=== PATIENT | male | born 1985 | race Caucasian/White ===

== ENCOUNTER 2018-05-15 17:31 | Inpatient (IN) | payer MEDICARE, MEDICAID ==
--- NOTE | 2018-05-15 17:36 | ED Physician Chart ---
ED Chief Complaint/HPI - Patient Information Date Seen:: 05/15/18 Time Seen:: 17:25 Chief Complaint:: Palpitations History of Present Illness:: onset x 2 days of palpitations, chest pain, S/T, cough, H/As, congestion, and fever; pt denies trauma, E/As, neck pain, SOB, Abd. Pain, A/N/V/D/C, chills, or urinary s/s Historian:: Patient, Family Member Review:: Nurse's Note Reviewed ED Review of Systems - Review of Systems General/Constitutional: Fever, No chills, No weight loss, No weakness, No diaphoresis, No edema, No loss of appetite Skin: No skin lesions, No rash, No bruising Head: Headache, No light-headedness Eyes: No loss of vision, No pain, No diplopia ENT: No earache, Nasal drainage, Sore throat, No tinnitus Neck: No neck pain, No swelling, No thyromegaly, No stiffness, No mass noted Cardio Vascular: Chest pain, Palpitations, No PND, No orthopnea, No edema Pulmonary: No SOB, No cough, No sputum, No wheezing GI: No nausea, No vomiting, No diarrhea, No pain, No melena, No hematochezia, No constipation, No hematemesis G/U: No dysuria, No frequency, No hematuria, No nacturia Musculoskeletal: No bone or joint pain, No back pain, No muscle pain Endocrine: No polyuria, No polydipsia Psychiatric: No prior psych history, No depression, No anxiety, No suicidal ideation, No homicidal ideation, No auditory hallucination, No visual hallucination Hematopoietic: No bruising, No lymphadenopathy Allergic/Immuno: No urticaria, No angioedema Neurological: No syncope, No focal symptoms, No weakness, No paresthesia, Headache, No seizure, No dizziness, No confusion, No vertigo ED Past Medical History - Past Medical History Obtainable: Yes Past Medical History: No significant medical hx Family History: HTN Social History: Non Smoker, No Alcohol, No Drug Use, Single Surgical History: None Psychiatricy History: None Medication: Reviewed Family Medical History - Family Member Mother History Unknown: Yes ED Physical Exam - Physical Examination General/Constitutional: Awake, Well-developed, well-nourished, Alert, No distress, GCS 15, Non-toxic appearing, Ambulatory Head: Atraumatic Eyes: Lids, conjuctiva normal, PERRL, EOMI Skin: Nl inspection, No rash, No skin lesions, No ecchymosis, Well hydrated, No lymphadenopathy ENMT: External ears, nose nl, TM canals nl, Nasal exam nl, Lips, teeth, gums nl , Tonsils nl Other ENMT comments:: Pharynx: Injected; + Nasal Congestion Neck: Nontender, Full ROM w/o pain, No JVD, No nuchal rigidity, No bruit, No mass, No stridor Respiratory: Nl effort/Exclusion, Clear to Auscultation, No Wheeze/Rhonchi/Rales Cardio Vascular: RRR, No murmur, gallop, rubs, NL S1 S2, Carotid/Femoral/Distal pulses equal bilaterally GI: No tenderness/rebounding/guarding, No organomegaly, No hernia, Normal BS's, Nondistended, No mass/bruits, No McBurney tenderness, Rectum exam nl Other GI comments:: no pulsatile masses : No CVA tenderness Extremities: No tenderness or effusion, Full ROM, normal strength in all extremities, No edema, Normal digits & nails Neuro/Psych: Alert/oriented, DTR's symmetric, Normal sensory exam, Normal motor strength, Judgement/insight normal, Mood normal, Normal gait, No focal deficits Other Neuro/Psych comments:: no focal signs Misc: Normal back, No paraspinal tenderness ED Labs/Radiology/EKG Results - Lab Results Comments:: Reviewed - Radiology Results Comments:: CXR: NAD - EKG Interpretations EKG Time:: 17:36 Rate & Rhythm: 133; ST Comments:: LVH; non-specific st-t changes ED Septic Shock - . Is Septic Shock (SBP<90, OR Lactate>4 mmol\L) present?: No ED Reassessment (Disposition) - Reassessment Reassessment Condition:: Improved - Diagnosis Diagnosis:: Dx: Palpitations; Cardiac Arrythmias; Tachycardia; Chest Pain; Angina Pectoris; Pharyngitis; Headaches; Hypokalemia; Leukocytosis; Fever; Bronchitis; URI - Aftercare/Follow up Instructions Aftercare/Follow-Up Instructions:: Counseled pt regarding lab results/diagnosis & need follow up, Counseled pt & family regarding lab results/diagnosis & need follow up - Patient Disposition Discharge/Transfer:: Acute Care w/in this hosp Accepting Physician:: Dr. Dickens Time Called:: 1929 Time Responded:: 19:30 Admitted to:: Telemetry Spoke to:: Dr. Dickens Admitting Medical Physician:: Dr. Dickens Condition at Disposition:: Stable, Improved
[2018-05-15] MEDS ORDERED: Sodium Chloride 0.9% 1,000 ML IV ONE (17:41)
[2018-05-15] MEDS ORDERED: Aspirin 81mg Chewable Tab PO STA (18:04)
[2018-05-15] MEDS ORDERED: Aspirin 81mg Chewable Tab ONE (18:06)
[2018-05-15 18:19] LABS: HEMATOCRIT 43.2 % (41.0-60); HEMOGLOBIN 14.4 gm/dL (12-16); MEAN CELL VOLUME 87.8 fl (80-99); MEAN CORPUSCULAR HEMOGLOBIN 29.3 pg (26.0-30.0); MEAN CORPUSCULAR HGB CONC 33.4 pg (28.0-36.0); MEAN PLATELET VOLUME 8.6 fl; PLATELET COUNT 343 Th/cmm (150-400); RED BLOOD COUNT 4.92 Mil/cmm (4.30-5.70)
[2018-05-15] MEDS ORDERED: cefTRIAXone 1 GM in Sodium Chloride 0.9% 50 ML IV ONE (18:21)
[2018-05-15 18:24] LABS: PROTHROMBIN TIME (TEST) 10.4 SECONDS (9.5-11.5)
[2018-05-15 18:27] LABS: WHITE BLOOD COUNT 19.4 Th/cmm (4.8-10.8)
[2018-05-15 18:30] LABS: ALB/GLOB RATIO 1.7 (1.0-1.8); ALBUMIN 4.7 gm/dL (4.2-5.5); ALKALINE PHOSPHATASE 125 U/L (34-104); ANION GAP 14.7 (7.0-16.0); BILIRUBIN,TOTAL 0.5 mg/dL (0.3-1.0); BUN - UREA NITROGEN 8 mg/dL (7-25); CALCIUM SERUM 9.6 mg/dL (8.6-10.3); CARBON DIOXIDE 24.6 mEq/L (21.0-31.0); CHLORIDE 102 mEq/L (98-107); CHOLESTEROL 118 mg/dL (<200); CREATININE - SERUM 1.2 mg/dL (0.7-1.3); CREATININE KINASE 147 U/L (30-223); GFR AFRICAN-AMERICAN > 60.0 ml/min (>90); GFR NON AFRICAN-AMERICAN > 60.0 ml/min; GLUCOSE 114 mg/dL (70-105); HDL -HIGH DENSITY LIPOPROTEIN 61 mg/dL (23-92); POTASSIUM SERUM 3.3 mEq/L (3.5-5.1); SGOT 20 U/L (13-39); SGPT/ALT 40 U/L (7-52); SODIUM SERUM 138 mEq/L (136-145); TOTAL PROTEIN,SERUM 7.5 gm/dL (6.0-8.3); TRIGLYCERIDES 50 mg/dL (<150)
[2018-05-15 18:36] LABS: AMYLASE SERUM 41 U/L (29-103); LIPASE 16 U/L (11-82)
[2018-05-15 18:52] LABS: BAND NEUTROPHILE 9 % (0-10); EOSINOPHIL 1 % (0-5); LYMPHOCYTE 13 % (20-50); MONOCYTE 4 % (2-10); NEUTROPHILS 73 % (40-80)
[2018-05-15 19:03] LABS: DDIMER QUANT < 100 ng/mL (100-400)
[2018-05-15] MEDS ORDERED: Potassium Chloride 20 mEq ER Tab PO ONE ×2 (19:16→19:55)
[2018-05-15 19:28] LABS: URINE SOURCE CLEAN C
[2018-05-15 19:29] LABS: URINE BILIRUBIN NEGATIVE (NEGATIVE); URINE BLOOD TRACE (NEGATIVE); URINE GLUCOSE (UA) NEGATIVE (NEGATIVE); URINE KETONE NEGATIVE (NEGATIVE); URINE LEUKOCYTE ESTERASE NEGATIVE (NEGATIVE); URINE MICROSCOPIC INDICATED? YES; URINE NITRATE NEGATIVE (NEGATIVE); URINE PH 7.5 (4.6 - 8.0); URINE PROTEIN NEGATIVE (NEGATIVE); URINE UROBILINOGEN 0.2 E.U./dL (0.2 - 1.0)
[2018-05-15 19:36] LABS: URINE CLARITY CLEAR (CLEAR); URINE COLOR YELLOW
[2018-05-15 19:42] LABS: URINE BACTERIA FEW /hpf (NONE SEEN); URINE EPITHELIAL CELLS FEW /lpf (FEW); URINE WBC 0-2 /hpf (0-5)
[2018-05-15 20:12] LABS: AMPHETAMINE URINE NEGATIVE (NEGATIVE); BARBITURATES URINE NEGATIVE (NEGATIVE); BENZODIAZEPINES QUAL URINE NEGATIVE (NEGATIVE); CANNABINOID THC NEGATIVE (NEGATIVE); COCAINE METABOLITE QUAL URINE NEGATIVE (NEGATIVE); METHADONE URINE NEGATIVE (NEGATIVE); METHAMPHETAMINES QUAL URINE NEGATIVE (NEGATIVE); OPIATES (MORPHINE) QUAL. URINE NEGATIVE (NEGATIVE); PHENCYCLIDINE (PCP) URINE NEGATIVE (NEGATIVE); TRICYCLICS (TCA) QUAL. URINE NEGATIVE (NEGATIVE)
[2018-05-15] MEDS ORDERED: Piperacillin Sodium/Tazobact 3.375 gm Vial IV ONE (21:58)
[2018-05-15] MEDS: Sodium Chloride 0.9% 1,000 ML IV SCH (22:18)
[2018-05-16 02:51] VITALS: BP 139/93
[2018-05-16] MEDS ORDERED: Piperacillin Sodium/Tazobact 3.375 gm Vial IV ONE (04:11)
[2018-05-16 04:44] LABS: % BASOPHILS 2.3 % (0.0-2.0); % EOSINOPHILS 0.9 % (0.0-5.0); % LYMPHOCYTES 15.4 % (20.0-50.0); % MONOCYTES 5.9 % (2.0-10.0); % NEUTROPHILS 75.5 % (40.0-80.0); BASOPHILE ABSOLUTE 0.3 Th/cumm (0-0.2); EOSINOPHILE ABSOLUTE 0.1 Th/cmm (0.1-0.4); HEMATOCRIT 41.4 % (41.0-60); LYMPHOCYTE ABSOLUTE 2.2 Th/cmm (1.5-3.0); MEAN CELL VOLUME 87.9 fl (80-99); MEAN CORPUSCULAR HEMOGLOBIN 29.7 pg (26.0-30.0); MEAN CORPUSCULAR HGB CONC 33.8 pg (28.0-36.0); MEAN PLATELET VOLUME 8.1 fl; MONOCYTE ABSOLUTE 0.8 Th/cmm (0.3-1.0); NEUTROPHILE ABSOLUTE 10.7 Th/cmm (1.8-8.0); PLATELET COUNT 287 Th/cmm (150-400); RED CELL DISTRIBUTION WIDTH 13.3 % (11.5-20.0)
[2018-05-16 05:05] LABS: WHITE BLOOD COUNT 14.1 Th/cmm (4.8-10.8)
[2018-05-16 05:28] LABS: ALB/GLOB RATIO 1.7 (1.0-1.8); ALKALINE PHOSPHATASE 101 U/L (34-104); ANION GAP 14.2 (7.0-16.0); BILIRUBIN,TOTAL 0.7 mg/dL (0.3-1.0); BUN - UREA NITROGEN 6 mg/dL (7-25); CALCIUM SERUM 8.8 mg/dL (8.6-10.3); CARBON DIOXIDE 25.7 mEq/L (21.0-31.0); CHLORIDE 106 mEq/L (98-107); CREATININE - SERUM 0.6 mg/dL (0.7-1.3); GFR AFRICAN-AMERICAN > 60.0 ml/min (>90); GFR NON AFRICAN-AMERICAN > 60.0 ml/min; GLUCOSE 103 mg/dL (70-105); POTASSIUM SERUM 3.9 mEq/L (3.5-5.1); SGOT 18 U/L (13-39); SGPT/ALT 33 U/L (7-52); SODIUM SERUM 142 mEq/L (136-145); TOTAL PROTEIN,SERUM 6.4 gm/dL (6.0-8.3)
[2018-05-16] MEDS: Sodium Chloride 0.9% 1,000 ML IV SCH ×2 (08:00→17:04)
--- NOTE | 2018-05-16 09:08 | Diagnostic Imaging Report ---
Portable chest x-ray History: Pain Allowing for portable technique the heart size is normal. No focal pulmonary parenchymal processes. No hilar or mediastinal abnormalities. Impression: No acute abnormalities.
--- NOTE | 2018-05-16 09:12 | Diagnostic Imaging Report ---
CT scan of the brain without contrast History: Headache Total DLP equals 670 CTDI equals 35.8 Axial sections were obtained from the base of the skull to the vertex. There is a normal ventricular system size. No focal parenchymal lesions are seen. No evidence of any mass effect or shift of midline structures. No extra-axial masses or abnormal fluid collections. Mucosal thickening noted within the ethmoid sinuses and suggestion of a small fluid level in the right maxillary sinus. Subcentimeter intraluminal densities noted within the left maxillary sinus. Small mucosal polyps or cysts cannot be excluded. Impression: 1. No acute intracerebral abnormalities 2. Mucosal thickening within the ethmoid and right maxillary sinuses. Subcentimeter intraluminal densities within the left maxillary sinus. Small mucosal polyps or cysts cannot be excluded.
--- NOTE | 2018-05-16 12:29 | History and Physical ---
History of Present Illness - HPI Chief Complaint: Chest pain, palpitations HPI: Patient refer that 2 days ago started with Chest pain, palpitations, chest congestion, odynophagia, and fever. Durinr ER evaluatuion was found WBC above, 20.000 thachicardy and fever. 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 Hx GI: Report: No Pertinent Hx Psych: Report: No Pertinent Hx Musculoskeletal: Report: No Pertinent Hx Rheumatologic: Report: No pertinent Hx Infectious Disease: Report: No Pertinent Hx Renal/: Report: No Pertinent Hx Endocrine: Report: No Pertinent Hx Dermatology: Report: No Pertinent Hx - Past Surgical History Past Surgical History: No pertinent Hx Family Medical History - Family Member Mother History Unknown: Yes Social History Smoke: No Alcohol: None Drugs: None Lives: Homeless Domestic Violence: Negative - Medications Home Medications: Home Medication Medication Instructions Recorded Type Dayquil 1 tsp PO X1 05/15/18 History - Allergies Allergies/Adverse Reactions: Allergies Allergy/AdvReac Type Severity Reaction Status Date / Time No Known Allergies Allergy Verified 05/15/18 18:01 Review of Systems - Review of Systems Constitutional: Report: No Significant Eyes: Report: No Significant ENT: Report: No Significant Respiratory: Report: No Significant Cardiovascular: Report: Chest Pain, Palpitations Gastrointestinal: Report: No Significant Genitourinary: Report: No Significant Musculoskeletal: Report: No Significant Skin: Report: No Significant Neurological: Report: Weakness Physical Exam - Physical Exam HEENT: Report: Pharyngeal Erythema and Exudates Noted Neck: Report: Within normal limits Cardiovascular Systems: Report: Tachycardia Respiratory: Report: Breath Sounds are within normal limits Abdomen: Report: Non-tender to palpation Back: Report: Inspection of back is within normal limits. Extremities: Report: Non-tender to palpation. Skin: Report: Color of skin is within normal limits Neuro/Psych: Report: Mood affect is within normal limits - Lab Results All Lab Results last 24 hours: Laboratory Results - last 24 hr 05/15/18 05/15/18 05/15/18 17:50 17:50 17:50 WBC 19.4 H RBC 4.92 Hgb 14.4 Hct 43.2 MCV 87.8 MCH 29.3 MCHC Differential 33.4 RDW 13.0 Plt Count 343 MPV 8.6 Add Manual Diff YES Neutrophils % Band Neutrophils % 9 Lymphocytes % Monocytes % Eosinophils % Basophils % Neutrophils (Manual) 73 Lymphocytes 13 L Monocytes 4 Eosinophils 1 PT 10.4 INR 1.00 D-Dimer < 100 L Sodium 138 Potassium 3.3 L Chloride 102 Carbon Dioxide 24.6 Anion Gap 14.7 BUN 8 Creatinine 1.2 Est GFR ( Amer) > 60.0 Est GFR (Non-Af Amer) > 60.0 BUN/Creatinine Ratio 6.7 Glucose 114 H Whole Bld Lactic Acid Calcium 9.6 Total Bilirubin 0.5 AST 20 ALT 40 Alkaline Phosphatase 125 H Creatine Kinase 147 Troponin I B-Natriuretic Peptide Total Protein 7.5 Albumin 4.7 Globulin 2.8 Albumin/Globulin Ratio 1.7 Triglycerides 50 Cholesterol 118 LDL Cholesterol Direct 49 L HDL Cholesterol 61 Amylase Lipase Urine Source Urine Color Urine Clarity Urine pH Ur Specific [place] Urine Protein Urine Glucose (UA) Urine Ketones Urine Blood Urine Nitrate Urine Bilirubin Urine Urobilinogen Ur Leukocyte Esterase Urine RBC Urine WBC Ur Epithelial Cells Urine Bacteria Urine Opiates Screen Urine Methadone Screen Ur Barbiturates Screen Ur Tricyclics Screen Ur Phencyclidine Scrn Amphetamines Screen U Methamphetamines Scrn U Benzodiazepines Scrn U Cocaine Metab Screen U Cannabinoids Screen 05/15/18 05/15/18 05/15/18 17:50 17:50 17:50 WBC RBC Hgb Hct MCV MCH MCHC Differential RDW Plt Count MPV Add Manual Diff Neutrophils % Band Neutrophils % Lymphocytes % Monocytes % Eosinophils % Basophils % Neutrophils (Manual) Lymphocytes Monocytes Eosinophils PT INR D-Dimer Sodium Potassium Chloride Carbon Dioxide Anion Gap BUN Creatinine Est GFR ( Amer) Est GFR (Non-Af Amer) BUN/Creatinine Ratio Glucose Whole Bld Lactic Acid Calcium Total Bilirubin AST ALT Alkaline Phosphatase Creatine Kinase Troponin I < 0.01 L B-Natriuretic Peptide 6.0 Total Protein Albumin Globulin Albumin/Globulin Ratio Triglycerides Cholesterol LDL Cholesterol Direct HDL Cholesterol Amylase 41 Lipase 16 Urine Source Urine Color Urine Clarity Urine pH Ur Specific [place] Urine Protein Urine Glucose (UA) Urine Ketones Urine Blood Urine Nitrate Urine Bilirubin Urine Urobilinogen Ur Leukocyte Esterase Urine RBC Urine WBC Ur Epithelial Cells Urine Bacteria Urine Opiates Screen Urine Methadone Screen Ur Barbiturates Screen Ur Tricyclics Screen Ur Phencyclidine Scrn Amphetamines Screen U Methamphetamines Scrn U Benzodiazepines Scrn U Cocaine Metab Screen U Cannabinoids Screen 05/15/18 05/15/18 05/15/18 18:30 19:26 19:26 WBC RBC Hgb Hct MCV MCH MCHC Differential RDW Plt Count MPV Add Manual Diff Neutrophils % Band Neutrophils % Lymphocytes % Monocytes % Eosinophils % Basophils % Neutrophils (Manual) Lymphocytes Monocytes Eosinophils PT INR D-Dimer Sodium Potassium Chloride Carbon Dioxide Anion Gap BUN Creatinine Est GFR ( Amer) Est GFR (Non-Af Amer) BUN/Creatinine Ratio Glucose Whole Bld Lactic Acid 1.02 Calcium Total Bilirubin AST ALT Alkaline Phosphatase Creatine Kinase Troponin I B-Natriuretic Peptide Total Protein Albumin Globulin Albumin/Globulin Ratio Triglycerides Cholesterol LDL Cholesterol Direct HDL Cholesterol Amylase Lipase Urine Source CLEAN C Urine Color YELLOW Urine Clarity CLEAR Urine pH 7.5 Ur Specific [place] <= 1.005 Urine Protein NEGATIVE Urine Glucose (UA) NEGATIVE Urine Ketones NEGATIVE Urine Blood TRACE Urine Nitrate NEGATIVE Urine Bilirubin NEGATIVE Urine Urobilinogen 0.2 Ur Leukocyte Esterase NEGATIVE Urine RBC 2-5 H Urine WBC 0-2 Ur Epithelial Cells FEW Urine Bacteria FEW Urine Opiates Screen NEGATIVE Urine Methadone Screen NEGATIVE Ur Barbiturates Screen NEGATIVE Ur Tricyclics Screen NEGATIVE Ur Phencyclidine Scrn NEGATIVE Amphetamines Screen NEGATIVE U Methamphetamines Scrn NEGATIVE U Benzodiazepines Scrn NEGATIVE U Cocaine Metab Screen NEGATIVE U Cannabinoids Screen NEGATIVE 05/16/18 05/16/18 04:10 04:10 WBC 14.1 H D RBC 4.70 Hgb 14.0 Hct 41.4 MCV 87.9 MCH 29.7 MCHC Differential 33.8 RDW 13.3 Plt Count 287 MPV 8.1 Add Manual Diff Neutrophils % 75.5 Band Neutrophils % Lymphocytes % 15.4 L Monocytes % 5.9 Eosinophils % 0.9 Basophils % 2.3 H Neutrophils (Manual) Lymphocytes Monocytes Eosinophils PT INR D-Dimer Sodium 142 Potassium 3.9 Chloride 106 Carbon Dioxide 25.7 Anion Gap 14.2 BUN 6 L Creatinine 0.6 L Est GFR ( Amer) > 60.0 Est GFR (Non-Af Amer) > 60.0 BUN/Creatinine Ratio 10.0 Glucose 103 Whole Bld Lactic Acid Calcium 8.8 Total Bilirubin 0.7 AST 18 ALT 33 Alkaline Phosphatase 101 Creatine Kinase Troponin I B-Natriuretic Peptide Total Protein 6.4 Albumin 4.0 L Globulin 2.4 Albumin/Globulin Ratio 1.7 Triglycerides Cholesterol LDL Cholesterol Direct HDL Cholesterol Amylase Lipase Urine Source Urine Color Urine Clarity Urine pH Ur Specific [place] Urine Protein Urine Glucose (UA) Urine Ketones Urine Blood Urine Nitrate Urine Bilirubin Urine Urobilinogen Ur Leukocyte Esterase Urine RBC Urine WBC Ur Epithelial Cells Urine Bacteria Urine Opiates Screen Urine Methadone Screen Ur Barbiturates Screen Ur Tricyclics Screen Ur Phencyclidine Scrn Amphetamines Screen U Methamphetamines Scrn U Benzodiazepines Scrn U Cocaine Metab Screen U Cannabinoids Screen - Assessment Assessment: Current Active Problems Problem Status Onset HEART PALPATATIONS WITH H/A Acute Patient is awake, alert, calm in no acute distress. Dx: Sepsis, Epper respiratory infection, Tachycardi. - Plan Plan: Patient in IV AB, IV NS, Pain control, Regular diet. Consult with Cardio requested. Will continue to monitor.
[2018-05-17] MEDS: Sodium Chloride 0.9% 1,000 ML IV SCH ×2 (03:04→08:43)
[2018-05-17 04:49] LABS: ALB/GLOB RATIO 1.5 (1.0-1.8); ALBUMIN 4.3 gm/dL (4.2-5.5); ALKALINE PHOSPHATASE 104 U/L (34-104); ANION GAP 13.8 (7.0-16.0); BILIRUBIN,TOTAL 0.4 mg/dL (0.3-1.0); BUN - UREA NITROGEN 7 mg/dL (7-25); CALCIUM SERUM 9.3 mg/dL (8.6-10.3); CARBON DIOXIDE 26.2 mEq/L (21.0-31.0); CHLORIDE 103 mEq/L (98-107); CREATININE - SERUM 0.7 mg/dL (0.7-1.3); GFR AFRICAN-AMERICAN > 60.0 ml/min (>90); GFR NON AFRICAN-AMERICAN > 60.0 ml/min; GLUCOSE 104 mg/dL (70-105); SGOT 20 U/L (13-39); SGPT/ALT 34 U/L (7-52); SODIUM SERUM 139 mEq/L (136-145); TOTAL PROTEIN,SERUM 7.1 gm/dL (6.0-8.3)
[2018-05-17 06:20] LABS: % LYMPHOCYTES 11.9 % (20.0-50.0); % MONOCYTES 5.1 % (2.0-10.0); EOSINOPHILE ABSOLUTE 0.2 Th/cmm (0.1-0.4); HEMATOCRIT 43.4 % (41.0-60); HEMOGLOBIN 14.6 gm/dL (12-16); LYMPHOCYTE ABSOLUTE 1.9 Th/cmm (1.5-3.0); MEAN CORPUSCULAR HGB CONC 33.7 pg (28.0-36.0); MEAN PLATELET VOLUME 8.2 fl; MONOCYTE ABSOLUTE 0.8 Th/cmm (0.3-1.0); NEUTROPHILE ABSOLUTE 13.3 Th/cmm (1.8-8.0); PLATELET COUNT 299 Th/cmm (150-400); RED BLOOD COUNT 4.87 Mil/cmm (4.30-5.70); RED CELL DISTRIBUTION WIDTH 13.4 % (11.5-20.0)
[2018-05-17 06:23] LABS: WHITE BLOOD COUNT 16.2 Th/cmm (4.8-10.8)
[2018-05-17] MEDS: Vancomycin HCl 1.5 GM in Sodium Chloride 0.9% 500 ML IV SCH ×2 (10:22→21:55)
--- NOTE | 2018-05-17 12:16 | General Progress Note ---
Subjective - Review of Systems Service Date: 05/17/18 Subjective: I am better Objective - Results Result Diagrams: 05/17/18 04:07 05/17/18 04:07 Recent Labs: Laboratory Last Values WBC 16.2 Th/cmm (4.8-10.8) H 05/17/18 04:07 RBC 4.87 Mil/cmm (4.30-5.70) 05/17/18 04:07 Hgb 14.6 gm/dL (12-16) 05/17/18 04:07 Hct 43.4 % (41.0-60) 05/17/18 04:07 MCV 89.0 fl (80-99) 05/17/18 04:07 MCH 30.0 pg (26.0-30.0) 05/17/18 04:07 MCHC Differential 33.7 pg (28.0-36.0) 05/17/18 04:07 RDW 13.4 % (11.5-20.0) 05/17/18 04:07 Plt Count 299 Th/cmm (150-400) 05/17/18 04:07 MPV 8.2 fl 05/17/18 04:07 Add Manual Diff YES 05/15/18 17:50 Neutrophils % 82.0 % (40.0-80.0) H 05/17/18 04:07 Band Neutrophils % 9 % (0-10) 05/15/18 17:50 Lymphocytes % 11.9 % (20.0-50.0) L 05/17/18 04:07 Monocytes % 5.1 % (2.0-10.0) 05/17/18 04:07 Eosinophils % 1.0 % (0.0-5.0) 05/17/18 04:07 Basophils % 0.0 % (0.0-2.0) 05/17/18 04:07 Neutrophils (Manual) 73 % (40-80) 05/15/18 17:50 Lymphocytes 13 % (20-50) L 05/15/18 17:50 Monocytes 4 % (2-10) 05/15/18 17:50 Eosinophils 1 % (0-5) 05/15/18 17:50 PT 10.4 SECONDS (9.5-11.5) 05/15/18 17:50 INR 1.00 (0.5-1.4) 05/15/18 17:50 D-Dimer < 100 ng/mL (100-400) L 05/15/18 17:50 Sodium 139 mEq/L (136-145) 05/17/18 04:07 Potassium 4.0 mEq/L (3.5-5.1) 05/17/18 04:07 Chloride 103 mEq/L (98-107) 05/17/18 04:07 Carbon Dioxide 26.2 mEq/L (21.0-31.0) 05/17/18 04:07 Anion Gap 13.8 (7.0-16.0) 05/17/18 04:07 BUN 7 mg/dL (7-25) 05/17/18 04:07 Creatinine 0.7 mg/dL (0.7-1.3) 05/17/18 04:07 Est GFR ( Amer) > 60.0 ml/min (>90) 05/17/18 04:07 Est GFR (Non-Af Amer) > 60.0 ml/min 05/17/18 04:07 BUN/Creatinine Ratio 10.0 05/17/18 04:07 Glucose 104 mg/dL (70-105) 05/17/18 04:07 Whole Bld Lactic Acid 1.02 mmol/L (0.60-1.99) 05/15/18 18:30 Calcium 9.3 mg/dL (8.6-10.3) 05/17/18 04:07 Total Bilirubin 0.4 mg/dL (0.3-1.0) 05/17/18 04:07 AST 20 U/L (13-39) 05/17/18 04:07 ALT 34 U/L (7-52) 05/17/18 04:07 Alkaline Phosphatase 104 U/L (34-104) 05/17/18 04:07 Creatine Kinase 147 U/L (30-223) 05/15/18 17:50 Troponin I < 0.01 ng/mL (0.01-0.05) L 05/15/18 17:50 B-Natriuretic Peptide 6.0 pg/mL (5.0-100.0) 05/15/18 17:50 Total Protein 7.1 gm/dL (6.0-8.3) 05/17/18 04:07 Albumin 4.3 gm/dL (4.2-5.5) 05/17/18 04:07 Globulin 2.8 gm/dL 05/17/18 04:07 Albumin/Globulin Ratio 1.5 (1.0-1.8) 05/17/18 04:07 Triglycerides 50 mg/dL (<150) 05/15/18 17:50 Cholesterol 118 mg/dL (<200) 05/15/18 17:50 LDL Cholesterol Direct 49 mg/dL (75-193) L 05/15/18 17:50 HDL Cholesterol 61 mg/dL (23-92) 05/15/18 17:50 Amylase 41 U/L (29-103) 05/15/18 17:50 Lipase 16 U/L (11-82) 05/15/18 17:50 Urine Source CLEAN C 05/15/18 19:26 Urine Color YELLOW 05/15/18 19:26 Urine Clarity CLEAR (CLEAR) 05/15/18 19:26 Urine pH 7.5 (4.6 - 8.0) 05/15/18 19:26 Ur Specific [place] <= 1.005 (1.005-1.030) 05/15/18 19:26 Urine Protein NEGATIVE mg/dL (NEGATIVE) 05/15/18 19:26 Urine Glucose (UA) NEGATIVE mg/dL (NEGATIVE) 05/15/18 19:26 Urine Ketones NEGATIVE mg/dL (NEGATIVE) 05/15/18 19:26 Urine Blood TRACE (NEGATIVE) 05/15/18 19:26 Urine Nitrate NEGATIVE (NEGATIVE) 05/15/18 19:26 Urine Bilirubin NEGATIVE (NEGATIVE) 05/15/18 19:26 Urine Urobilinogen 0.2 E.U./dL (0.2 - 1.0) 05/15/18 19:26 Ur Leukocyte Esterase NEGATIVE (NEGATIVE) 05/15/18 19:26 Urine RBC 2-5 /hpf (0-5) H 05/15/18 19:26 Urine WBC 0-2 /hpf (0-5) 05/15/18 19:26 Ur Epithelial Cells FEW /lpf (FEW) 05/15/18 19:26 Urine Bacteria FEW /hpf (NONE SEEN) 05/15/18 19:26 Urine Opiates Screen NEGATIVE (NEGATIVE) 05/15/18 19:26 Urine Methadone Screen NEGATIVE (NEGATIVE) 05/15/18 19:26 Ur Barbiturates Screen NEGATIVE (NEGATIVE) 05/15/18 19:26 Ur Tricyclics Screen NEGATIVE (NEGATIVE) 05/15/18 19:26 Ur Phencyclidine Scrn NEGATIVE (NEGATIVE) 05/15/18 19:26 Amphetamines Screen NEGATIVE (NEGATIVE) 05/15/18 19:26 U Methamphetamines Scrn NEGATIVE (NEGATIVE) 05/15/18 19:26 U Benzodiazepines Scrn NEGATIVE (NEGATIVE) 05/15/18 19:26 U Cocaine Metab Screen NEGATIVE (NEGATIVE) 05/15/18 19:26 U Cannabinoids Screen NEGATIVE (NEGATIVE) 05/15/18 19:26 - Physical Exam Vitals and I&O: Vital Signs Temp 98.6 F 05/17/18 08:00 Pulse 99 05/17/18 11:00 Resp 15 05/17/18 11:00 BP 124/78 05/17/18 11:00 Pulse Ox 97 05/17/18 11:00 Intake & Output 05/16/18 05/17/18 05/17/18 18:59 06:59 18:59 Intake Total 4235.000 1993.333 271.667 Output Total 2100 2100 Balance 2135.000 -106.667 271.667 Weight (lbs) 79.464 kg 78.925 kg Intake: Intake, IV Amount 5145.214 2810.333 271.667 Piperacillin Sodium/ 100 100 Tazobact 3.375 gm In Sodium Chloride 0.9% 50 ml @ 100 mls/hr IV Q6H [facility] Rx#:[id number] Sodium Chloride 0.9% 1, 9143.331 5023.333 271.667 000 ml @ 100 mls/hr IV . Q10H [facility] Rx#:[id number] Oral 2350 600 Output: Urine 2100 2100 Other: # Voids 5 5 # Bowel Movements 0 0 Weight Source Bedscale Bedscale Active Medications: Current Medications Acetaminophen (Tylenol) 650 mg PO Q6H PRN PRN Reason: Fever > 101 Stop: 07/14/18 20:52 Last Admin: 05/17/18 05:55 Dose: 650 mg Sodium Chloride (Nacl 0.9%) 1,000 mls @ 100 mls/hr IV .Q10H [facility] Stop: 07/14/18 20:52 Last Admin: 05/17/18 08:43 Dose: 100 mls/hr Piperacillin Sod/Tazobactam (Sod 3.375 gm/ Sodium Chloride) 50 mls @ 100 mls/ hr IV Q6H [facility] Stop: 07/14/18 21:59 Last Admin: 05/17/18 10:21 Dose: 100 mls/hr Vancomycin HCl 1.5 gm/ Sodium (Chloride) 500 mls @ 250 mls/hr IV Q12H [facility] Stop: 07/16/18 09:59 Last Admin: 05/17/18 10:22 Dose: 250 mls/hr Ketorolac Tromethamine (Toradol) 30 mg IM Q6H PRN PRN Reason: Pain (Moderate) Stop: 07/14/18 20:52 Metoprolol Tartrate (Lopressor) 25 mg PO BID [facility] Stop: 07/15/18 16:59 Last Admin: 05/17/18 08:40 Dose: 25 mg Miscellaneous (Vancomycin Iv Per Pharmacy) 1 ea MC PRN [facility] Stop: 07/16/18 07:14 General: Alert, Oriented x3, No acute distress HEENT: Atraumatic, PERRLA Neck: Supple Cardiovascular: Other (Tachycardic) Lungs: Clear to auscultation Abdomen: Bowel sounds, Soft Extremities: Other (No edema) Neurological: Normal gait Skin: Other (Warm and dry) Psych/Mental Status: Mental status NL Assessment/Plan - Problem List Patient Problems: All Active Problems HEART PALPATATIONS WITH H/A (Acute) - Assessment Assessment: Current Active Problems Problem Status Onset HEART PALPATATIONS WITH H/A Acute Patient is awake, alert, calm in no acute distress. Dx: Sepsis, Upper respiratory infection, Tachycardia. - Plan Plan: Patient in IV AB, IV NS, Pain control, Regular diet, metoprolol is added by cardio. Follow by Cardiology. Patient is transfer to Telemetry. Will continue to monitor.
[2018-05-17] MEDS ORDERED: Sodium Chloride 0.9% 1,000 ML IV SCH (16:00)
--- NOTE | 2018-05-17 20:02 | Consultation ---
DATE OF CONSULTATION: 05/16/[address] Dickens. HISTORY OF PRESENT ILLNESS: This is a 33-year-old male patient who came to the Emergency Room complaining of pain in the throat associated with congestion. The patient had supraventricular tachycardia with hypertension and hence, the patient is admitted. No history of PND or orthopnea. PAST MEDICAL HISTORY: The patient has a history of hypertension. FAMILY HISTORY: Unremarkable. SOCIAL HISTORY: No history of smoking or alcohol abuse. ALLERGIES: None. PHYSICAL EXAMINATION: VITAL SIGNS: Blood pressure 132/80, pulse 110, and respirations 20. HEAD: Normocephalic. No lumps or bumps. EYES: Pupils equal, reactive to light. Fundi show AV nicking, sclerae white, conjunctivae pink. NECK: Carotid 2+. Normal upstroke. JVD flat. Thyroid not palpable. Lymph nodes not palpable. CHEST: Shows increased AP diameter. No kyphosis, scoliosis. LUNGS: Bilateral bronchovesicular breath sounds. HEART: PMI fifth intercostal space with lateral to midclavicular line. S1, S2. No S3, S4, soft systolic murmur. ABDOMEN: Soft. Liver, spleen not palpable. No organomegaly. Bowel sounds active. NEUROLOGIC: Unremarkable. EXTREMITIES: Peripheral pulses 2+. No pedal edema. CLINICAL IMPRESSION: Sinus tachycardia and hypertension. PLAN: The patient will be started on beta paty. We will get echocardiogram and monitor the patient. JOB# [id number]
[2018-05-18 04:59] LABS: % BASOPHILS 3.5 % (0.0-2.0); % EOSINOPHILS 1.1 % (0.0-5.0); % MONOCYTES 4.5 % (2.0-10.0); % NEUTROPHILS 81.9 % (40.0-80.0); BASOPHILE ABSOLUTE 0.5 Th/cumm (0-0.2); EOSINOPHILE ABSOLUTE 0.2 Th/cmm (0.1-0.4); HEMATOCRIT 43.2 % (41.0-60); HEMOGLOBIN 14.3 gm/dL (12-16); LYMPHOCYTE ABSOLUTE 1.3 Th/cmm (1.5-3.0); MEAN CELL VOLUME 89.2 fl (80-99); MEAN CORPUSCULAR HEMOGLOBIN 29.5 pg (26.0-30.0); MEAN CORPUSCULAR HGB CONC 33.1 pg (28.0-36.0); MEAN PLATELET VOLUME 8.5 fl; MONOCYTE ABSOLUTE 0.7 Th/cmm (0.3-1.0); NEUTROPHILE ABSOLUTE 12.1 Th/cmm (1.8-8.0); PLATELET COUNT 293 Th/cmm (150-400); RED BLOOD COUNT 4.84 Mil/cmm (4.30-5.70); RED CELL DISTRIBUTION WIDTH 13.4 % (11.5-20.0); WHITE BLOOD COUNT 14.8 Th/cmm (4.8-10.8)
[2018-05-18 05:11] LABS: ALB/GLOB RATIO 1.6 (1.0-1.8); ALKALINE PHOSPHATASE 91 U/L (34-104); ANION GAP 10.8 (7.0-16.0); BILIRUBIN,TOTAL 0.5 mg/dL (0.3-1.0); BUN - UREA NITROGEN 8 mg/dL (7-25); CALCIUM SERUM 8.9 mg/dL (8.6-10.3); CARBON DIOXIDE 26.9 mEq/L (21.0-31.0); CHLORIDE 104 mEq/L (98-107); CREATININE - SERUM 0.7 mg/dL (0.7-1.3); GFR AFRICAN-AMERICAN > 60.0 ml/min (>90); GFR NON AFRICAN-AMERICAN > 60.0 ml/min; GLUCOSE 100 mg/dL (70-105); POTASSIUM SERUM 3.7 mEq/L (3.5-5.1); SGOT 14 U/L (13-39); SGPT/ALT 26 U/L (7-52); SODIUM SERUM 138 mEq/L (136-145); TOTAL PROTEIN,SERUM 6.5 gm/dL (6.0-8.3)
[2018-05-18] MEDS ORDERED: Vancomycin HCl 1.5 GM in Sodium Chloride 0.9% 500 ML IV ONE (11:00)
[2018-05-18] MEDS: Vancomycin HCl 1.5 GM in Sodium Chloride 0.9% 500 ML IV SCH (16:43)
--- NOTE | 2018-05-18 18:13 | General Progress Note ---
Subjective - Review of Systems Service Date: 05/18/18 Subjective: I am better Objective - Results Result Diagrams: 05/18/18 04:15 05/18/18 04:15 Recent Labs: Laboratory Last Values WBC 14.8 Th/cmm (4.8-10.8) H 05/18/18 04:15 RBC 4.84 Mil/cmm (4.30-5.70) 05/18/18 04:15 Hgb 14.3 gm/dL (12-16) 05/18/18 04:15 Hct 43.2 % (41.0-60) 05/18/18 04:15 MCV 89.2 fl (80-99) 05/18/18 04:15 MCH 29.5 pg (26.0-30.0) 05/18/18 04:15 MCHC Differential 33.1 pg (28.0-36.0) 05/18/18 04:15 RDW 13.4 % (11.5-20.0) 05/18/18 04:15 Plt Count 293 Th/cmm (150-400) 05/18/18 04:15 MPV 8.5 fl 05/18/18 04:15 Add Manual Diff YES 05/15/18 17:50 Neutrophils % 81.9 % (40.0-80.0) H 05/18/18 04:15 Band Neutrophils % 9 % (0-10) 05/15/18 17:50 Lymphocytes % 9.0 % (20.0-50.0) L 05/18/18 04:15 Monocytes % 4.5 % (2.0-10.0) 05/18/18 04:15 Eosinophils % 1.1 % (0.0-5.0) 05/18/18 04:15 Basophils % 3.5 % (0.0-2.0) H 05/18/18 04:15 Neutrophils (Manual) 73 % (40-80) 05/15/18 17:50 Lymphocytes 13 % (20-50) L 05/15/18 17:50 Monocytes 4 % (2-10) 05/15/18 17:50 Eosinophils 1 % (0-5) 05/15/18 17:50 PT 10.4 SECONDS (9.5-11.5) 05/15/18 17:50 INR 1.00 (0.5-1.4) 05/15/18 17:50 D-Dimer < 100 ng/mL (100-400) L 05/15/18 17:50 Sodium 138 mEq/L (136-145) 05/18/18 04:15 Potassium 3.7 mEq/L (3.5-5.1) 05/18/18 04:15 Chloride 104 mEq/L (98-107) 05/18/18 04:15 Carbon Dioxide 26.9 mEq/L (21.0-31.0) 05/18/18 04:15 Anion Gap 10.8 (7.0-16.0) 05/18/18 04:15 BUN 8 mg/dL (7-25) 05/18/18 04:15 Creatinine 0.7 mg/dL (0.7-1.3) 05/18/18 04:15 Est GFR ( Amer) > 60.0 ml/min (>90) 05/18/18 04:15 Est GFR (Non-Af Amer) > 60.0 ml/min 05/18/18 04:15 BUN/Creatinine Ratio 11.4 05/18/18 04:15 Glucose 100 mg/dL (70-105) 05/18/18 04:15 Whole Bld Lactic Acid 1.02 mmol/L (0.60-1.99) 05/15/18 18:30 Calcium 8.9 mg/dL (8.6-10.3) 05/18/18 04:15 Total Bilirubin 0.5 mg/dL (0.3-1.0) 05/18/18 04:15 AST 14 U/L (13-39) 05/18/18 04:15 ALT 26 U/L (7-52) 05/18/18 04:15 Alkaline Phosphatase 91 U/L (34-104) 05/18/18 04:15 Creatine Kinase 147 U/L (30-223) 05/15/18 17:50 Troponin I < 0.01 ng/mL (0.01-0.05) L 05/15/18 17:50 B-Natriuretic Peptide 6.0 pg/mL (5.0-100.0) 05/15/18 17:50 Total Protein 6.5 gm/dL (6.0-8.3) 05/18/18 04:15 Albumin 4.0 gm/dL (4.2-5.5) L 05/18/18 04:15 Globulin 2.5 gm/dL 05/18/18 04:15 Albumin/Globulin Ratio 1.6 (1.0-1.8) 05/18/18 04:15 Triglycerides 50 mg/dL (<150) 05/15/18 17:50 Cholesterol 118 mg/dL (<200) 05/15/18 17:50 LDL Cholesterol Direct 49 mg/dL (75-193) L 05/15/18 17:50 HDL Cholesterol 61 mg/dL (23-92) 05/15/18 17:50 Amylase 41 U/L (29-103) 05/15/18 17:50 Lipase 16 U/L (11-82) 05/15/18 17:50 Urine Source CLEAN C 05/15/18 19:26 Urine Color YELLOW 05/15/18 19:26 Urine Clarity CLEAR (CLEAR) 05/15/18 19:26 Urine pH 7.5 (4.6 - 8.0) 05/15/18 19:26 Ur Specific [place] <= 1.005 (1.005-1.030) 05/15/18 19:26 Urine Protein NEGATIVE mg/dL (NEGATIVE) 05/15/18 19:26 Urine Glucose (UA) NEGATIVE mg/dL (NEGATIVE) 05/15/18 19:26 Urine Ketones NEGATIVE mg/dL (NEGATIVE) 05/15/18 19:26 Urine Blood TRACE (NEGATIVE) 05/15/18 19:26 Urine Nitrate NEGATIVE (NEGATIVE) 05/15/18 19: Urine Bilirubin NEGATIVE (NEGATIVE) 05/15/18 19:26 Urine Urobilinogen 0.2 E.U./dL (0.2 - 1.0) 05/15/18 19:26 Ur Leukocyte Esterase NEGATIVE (NEGATIVE) 05/15/18 19:26 Urine RBC 2-5 /hpf (0-5) H 05/15/18 19:26 Urine WBC 0-2 /hpf (0-5) 05/15/18 19:26 Ur Epithelial Cells FEW /lpf (FEW) 05/15/18 19:26 Urine Bacteria FEW /hpf (NONE SEEN) 05/15/18 19:26 Vancomycin Trough 6.4 ug/mL (5-10) 05/18/18 10:00 Urine Opiates Screen NEGATIVE (NEGATIVE) 05/15/18 19:26 Urine Methadone Screen NEGATIVE (NEGATIVE) 05/15/18 19:26 Ur Barbiturates Screen NEGATIVE (NEGATIVE) 05/15/18 19:26 Ur Tricyclics Screen NEGATIVE (NEGATIVE) 05/15/18 19:26 Ur Phencyclidine Scrn NEGATIVE (NEGATIVE) 05/15/18 19:26 Amphetamines Screen NEGATIVE (NEGATIVE) 05/15/18 19:26 U Methamphetamines Scrn NEGATIVE (NEGATIVE) 05/15/18 19:26 U Benzodiazepines Scrn NEGATIVE (NEGATIVE) 05/15/18 19:26 U Cocaine Metab Screen NEGATIVE (NEGATIVE) 05/15/18 19:26 U Cannabinoids Screen NEGATIVE (NEGATIVE) 05/15/18 19:26 - Physical Exam Vitals and I&O: Vital Signs Temp 98.7 F 05/18/18 16:05 Pulse 100 05/18/18 16:43 Resp 17 05/18/18 16:05 BP 137/74 05/18/18 16:43 Pulse Ox 97 05/18/18 16:05 Intake & Output 05/17/18 05/18/18 05/18/18 18:59 06:59 18:59 Intake Total 7103.046 8911 50 Output Total 2000 1500 Balance -328.333 -300 50 Weight (lbs) 78.925 kg 78.925 kg Intake: Intake, IV Amount 871.667 600 50 Piperacillin Sodium/ 100 100 50 Tazobact 3.375 gm In Sodium Chloride 0.9% 50 ml @ 100 mls/hr IV Q6H [facility] Rx#:[id number] Sodium Chloride 0.9% 1, 271.667 000 ml @ 100 mls/hr IV . Q10H [facility] Rx#:[id number] Vancomycin HCl 1.5 gm In 500 500 Sodium Chloride 0.9% 500 ml @ 250 mls/hr IV Q12H [facility] Rx#:[id number] Oral 800 600 Output: Urine 2000 1500 Other: # Voids 5 3 # Bowel Movements 1 0 Stool Characteristics Soft Formed Weight Source Bedscale Bedscale Active Medications: Current Medications Acetaminophen (Tylenol) 650 mg PO Q6H PRN PRN Reason: Fever > 101 Stop: 07/14/18 20:52 Last Admin: 05/18/18 04:00 Dose: 650 mg Piperacillin Sod/Tazobactam (Sod 3.375 gm/ Sodium Chloride) 50 mls @ 100 mls/ hr IV Q6H [facility] Stop: 07/14/18 21:59 Last Admin: 05/18/18 16:42 Dose: 100 mls/hr Sodium Chloride (Nacl 0.9%) 1,000 mls @ 0 mls/hr IV .Q0M [facility] Stop: 07/16/18 15:59 Vancomycin HCl 1.5 gm/ Sodium (Chloride) 500 mls @ 250 mls/hr IV Q8H [facility] Stop: 07/17/18 15:59 Last Admin: 05/18/18 16:43 Dose: 250 mls/hr Ketorolac Tromethamine (Toradol) 30 mg IM Q6H PRN PRN Reason: Pain (Moderate) Stop: 07/14/18 20:52 Metoprolol Tartrate (Lopressor) 50 mg PO BID [facility] Stop: 07/16/18 16:59 Last Admin: 05/18/18 16:43 Dose: 50 mg Miscellaneous (Vancomycin Iv Per Pharmacy) 1 ea [facility] PRN [facility] Stop: 07/16/18 07:14 General: Alert, Oriented x3, No acute distress HEENT: Atraumatic, PERRLA Neck: Supple Cardiovascular: Other (Tachycardic) Lungs: Clear to auscultation Abdomen: Bowel sounds, Soft Extremities: Other (No edema) Neurological: Normal gait Skin: Other (Warm and dry) Psych/Mental Status: Mental status NL Assessment/Plan - Problem List Patient Problems: All Active Problems HEART PALPATATIONS WITH H/A (Acute) - Assessment Assessment: Current Active Problems Problem Status Onset HEART PALPATATIONS WITH H/A Acute Patient is awake, alert, calm in no acute distress. WBC improving. Dx: Sepsis , Upper respiratory infection, Tachycardia. - Plan Plan: Patient in IV AB, IV NS, Pain control, Regular diet, metoprolol is added by cardio. Follow by Cardiology. Patient improving. Will continue to monitor.
[2018-05-19] MEDS: Vancomycin HCl 1.5 GM in Sodium Chloride 0.9% 500 ML IV SCH
[2018-05-19 05:06] LABS: % BASOPHILS 0.9 % (0.0-2.0); % LYMPHOCYTES 17.1 % (20.0-50.0); % MONOCYTES 6.8 % (2.0-10.0); % NEUTROPHILS 73.2 % (40.0-80.0); BASOPHILE ABSOLUTE 0.1 Th/cumm (0-0.2); EOSINOPHILE ABSOLUTE 0.3 Th/cmm (0.1-0.4); HEMATOCRIT 43.8 % (41.0-60); HEMOGLOBIN 14.8 gm/dL (12-16); LYMPHOCYTE ABSOLUTE 2.2 Th/cmm (1.5-3.0); MEAN CORPUSCULAR HGB CONC 33.7 pg (28.0-36.0); MEAN PLATELET VOLUME 7.9 fl; MONOCYTE ABSOLUTE 0.9 Th/cmm (0.3-1.0); NEUTROPHILE ABSOLUTE 9.2 Th/cmm (1.8-8.0); PLATELET COUNT 331 Th/cmm (150-400); RED BLOOD COUNT 4.92 Mil/cmm (4.30-5.70); RED CELL DISTRIBUTION WIDTH 13.4 % (11.5-20.0); WHITE BLOOD COUNT 12.7 Th/cmm (4.8-10.8)
[2018-05-19 05:20] LABS: ALB/GLOB RATIO 1.5 (1.0-1.8); ALKALINE PHOSPHATASE 90 U/L (34-104); ANION GAP 12.3 (7.0-16.0); BILIRUBIN,TOTAL 0.4 mg/dL (0.3-1.0); BUN - UREA NITROGEN 10 mg/dL (7-25); CARBON DIOXIDE 25.2 mEq/L (21.0-31.0); CHLORIDE 105 mEq/L (98-107); CREATININE - SERUM 0.7 mg/dL (0.7-1.3); GFR AFRICAN-AMERICAN > 60.0 ml/min (>90); GFR NON AFRICAN-AMERICAN > 60.0 ml/min; GLUCOSE 93 mg/dL (70-105); POTASSIUM SERUM 3.5 mEq/L (3.5-5.1); SGOT 27 U/L (13-39); SGPT/ALT 38 U/L (7-52); SODIUM SERUM 139 mEq/L (136-145); TOTAL PROTEIN,SERUM 6.7 gm/dL (6.0-8.3)
[2018-05-19] MEDS ORDERED: VANCOMYCIN HCL IV ONE (06:00)
[2018-05-19] MEDS ORDERED: SODIUM CHLORIDE 0.9% IV ONE (06:00)
--- NOTE | 2018-05-19 10:07 | Discharge Summary ---
General Discharge Summary - Discharge Summary Date of Admission: 05/15/18 Admitting Diagnosis: Sepsis, Upper respiratory infection, Tacchycardia Discharge Date: 05/19/18 Discharge Diagnosis: Sepsis, Upper respiratory infection, Tachycardia. Laboratory Findings: Laboratory Results - last 24 hr 05/18/18 05/19/18 05/19/18 10:00 04:50 04:50 WBC 12.7 H RBC 4.92 Hgb 14.8 Hct 43.8 MCV 89.0 MCH 30.0 MCHC Differential 33.7 RDW 13.4 Plt Count 331 MPV 7.9 Neutrophils % 73.2 Lymphocytes % 17.1 L Monocytes % 6.8 Eosinophils % 2.0 Basophils % 0.9 Sodium 139 Potassium 3.5 Chloride 105 Carbon Dioxide 25.2 Anion Gap 12.3 BUN 10 Creatinine 0.7 Est GFR ( Amer) > 60.0 Est GFR (Non-Af Amer) > 60.0 BUN/Creatinine Ratio 14.3 Glucose 93 Calcium 9.0 Total Bilirubin 0.4 AST 27 ALT 38 Alkaline Phosphatase 90 Total Protein 6.7 Albumin 4.0 L Globulin 2.7 Albumin/Globulin Ratio 1.5 Vancomycin Trough 6.4 Hospital Course: Patient responded to treatment, he improved and leukocytosis came down, Thachycardia imrpoved. Treatment: Patient was started in IV NS, IV AB, Metoprolol, regular diet, pain control. He was follow by Cardiology. Disposition: PT DISCHARGED HOME Home Medications: Home Medication Medication Instructions Recorded Type Dayquil 1 tsp PO X1 05/15/18 History Inpatient Medications: Current Medications Acetaminophen (Tylenol) 650 mg PO Q6H PRN PRN Reason: Fever > 101 Stop: 07/14/18 20:52 Last Admin: 05/18/18 04:00 Dose: 650 mg Piperacillin Sod/Tazobactam (Sod 3.375 gm/ Sodium Chloride) 50 mls @ 100 mls/ hr IV Q6H [facility] Stop: 07/14/18 21:59 Last Admin: 05/19/18 09:19 Dose: 100 mls/hr Sodium Chloride (Nacl 0.9%) 1,000 mls @ 0 mls/hr IV .Q0M [facility] Stop: 07/16/18 15:59 Vancomycin HCl 1.5 gm/ Sodium (Chloride) 500 mls @ 250 mls/hr IV Q8H [facility] Stop: 07/18/18 15:59 Ketorolac Tromethamine (Toradol) 30 mg IM Q6H PRN PRN Reason: Pain (Moderate) Stop: 07/14/18 20:52 Metoprolol Tartrate (Lopressor) 50 mg PO BID [facility] Stop: 07/16/18 16:59 Last Admin: 05/19/18 09:19 Dose: 50 mg Miscellaneous (Vancomycin Iv Per Pharmacy) 1 ea [facility] PRN [facility] Stop: 07/16/18 07:14 Activity: Bed Rest Discharge Diet: Regular Consults and Follow-Up: Farooq Dickens [Primary Care Provider] - Consulting Speciality: Other (PCP) Instructions: Sepsis, Adult
[2018-05-19] MEDS ORDERED: Vancomycin HCl 1.5 GM in Sodium Chloride 0.9% 500 ML IV SCH (16:00)
--- NOTE | 2018-05-19 17:28 | Cardiology ---
05/17/2018 PATIENT OF: Dr. Dickens. M-MODE ECHOCARDIOGRAM: Mitral valve, anterior leaflet of mitral valve shows normal excursion, EF velocity. Posterior leaflet of the mitral valve shows normal excursion. Left ventricular posterior wall shows increased thickness, normal excursion. Interventricular septum shows increased thickness, normal excursion, minimal hypertrophy of the left ventricle, ejection fraction 70%. Left atrium normal. Aortic root shows normal dimension with normal excursion of aortic leaflets. CONCLUSION: Minimal hypertrophy of the left ventricle, ejection fraction 70%. 2D ECHO: Long axis view showed normal sized left ventricle with minimal hypertrophy of the left ventricle, left atrium normal. Aortic root shows normal dimension, normal excursion of aortic leaflets, short axis view of mitral valve normal. Short axis view of aortic valve normal. Apical four chamber view showed normal sized left ventricle with minimal hypertrophy of the left ventricle. Left atrium normal. Right ventricular cavity, right atrium normal, no pericardial effusion. CONCLUSION: Minimal hypertrophy of the left ventricle, ejection fraction 70%. Doppler study showed trace mitral regurgitation, trace tricuspid regurgitation, right ventricular systolic pressure 23 mmHg. [facility]# [id number]
== END 2018-05-19 16:15 | disposition home or self-care (01) | DRG 872 ==
LOC: ER 17:31 → ICU 21:00 → TELE 05-18 07:02
PROVIDERS: ADMIT General Practice; ATTEND General Practice
DX: A41.9 Sepsis, unspecified organism (principal); I47.1 Supraventricular tachycardia; I10 Essential (primary) hypertension; J06.9 Acute upper respiratory infection, unspecified; E87.6 Hypokalemia; J40 Bronchitis, not specified as acute or chronic; J02.9 Acute pharyngitis, unspecified; I20.9 Angina pectoris, unspecified; R13.10 Dysphagia, unspecified; Z82.49 Family history of ischemic heart disease and other diseases of the circulatory system
CPT/HCPCS: 36415-UA; 70450-TC; 71045-TC; 80053-TC; 80061-TC; 80202-TC; 80307; 81001-TC; 82150-TC; 82550-TC; 83605; 83690-TC; 83880-TC; 84484-TC; 85007-TC; 85025-TC; 85379-TC; 85610-TC; 93005; 96375; J0696; J2543; J3370; J7030; J7040; Z7610